=== PATIENT | male | born 1980 | race Caucasian/White ===

== ENCOUNTER 2018-12-30 18:00 | Emergency (ER) | payer OTHER ==
--- NOTE | 2018-12-30 18:04 | ED Physician Documentation ---
Eye Problem - HISTORIAN Historian: patient - HPI Stated Complaint: eye irritation after exposure Chief Complaint: Eye Trauma Onset: hours (1) Associated symptoms: burining, sensitivity to light, decreased vision (like a foggy room he said ) Location: both eyes Severity: mild Apparent Injury: yes Context: chemical exposure Where: home - ROS CONST: no problems MS/SKIN/LYMPH: denies: weakness CVS/RESP: none EYES/ENT: none GI/: denies: problems urinating NEURO: denies: headache - PAST HX Past History: none Allergies/Adverse Reactions: Allergies Allergy/AdvReac Type Severity Reaction Status Date / Time prednisone AdvReac Unknown unknown Verified 12/30/18 18:14 - SOCIAL HX Smoking History: non-smoker Alcohol Use: none Drug Use: none - FAMILY HX Family History: none - REVIEWED ASSESSMENTS Nursing Assessment Reviewed: Yes Vitals Reviewed: Yes Procedures - Eye Procedure Eye Irrigated w/ Saline (ccs): 1,000 (both eyes ) Progress: hanley lamp reveals no obvious injury. He has improvement on the visual mccurdy. DG Progress - Progress Progress: 1819: discussed with poison control and they have given further instructions DG Eye Problem Physical Exam - Physical Exam General Appearance: no acute distress, alert Eyelids: nml inspection Conjunctiva and Sclera: injected (R), injected (L) Corneas: fluorescein dye uptake (L), fluorescein dye uptake (R), examined with fluorescein (R), examined with fluorescein (L). No: foreign body (R), foreign body (L), abrasion (R), abrasion (L), corneal ulcer (R), corneal ulcer (L) EOM: intact Pupils: equal Head/ENT: nml inspection Skin: nml color, warm Neck/Back: nml inspection Respiratory: no resp distress, chest non-tender, breath sounds normal CVS: reg rate & rhythm, heart sounds normal, equal pulses Abdomen: non-tender Neuro/Psych: oriented x3 Discharge Clincal Impression: Bilateral eye trauma Qualifiers: Encounter type: initial encounter Qualified Code(s): S05.91XA - Unspecified injury of right eye and orbit, initial encounter Referrals: Primary Doctor,No [Primary Care Provider] - 2 Days Comments: 1. Eye protection for next day 2. Rinse eyes any further if needed 3. Follow up with eye provider if needed Tuesday 4. Return to ER for any increasing needs Condition: Stable Disposition: 01 HOME, SELF-CARE Decision to Admit: NO Date of Decison to Admit: 12/30/18 Decision Time: 19:05
[2018-12-30] MEDS ORDERED: PROPARACAINE HCL 0.5% OPTH 15 ML BOTTLE OU ONE (18:17)
[2018-12-30] MEDS ORDERED: 0.9 % SODIUM CHLORIDE 2,000 ML IV ONE (18:17)
[2018-12-30] MEDS ORDERED: PROPARACAINE HCL 0.5% OPTH 15 ML BOTTLE ONE (18:18)
[2018-12-30] MEDS ORDERED: 0.9 % SODIUM CHLORIDE 1,000 ML IV ONE ×2 (18:18→18:36)
[2018-12-30] MEDS ORDERED: FLUORESCEIN SODIUM 1 STRIP TEST ONE (18:42)
[2018-12-30] MEDS ORDERED: FLUORESCEIN SODIUM 1 STRIP TEST OU ONE (18:55)
[2018-12-30 19:13] VITALS: BP 112/74
== END 2018-12-30 19:07 | disposition home or self-care (01) ==
LOC: ED 18:00
DX: S05.91XA Unspecified injury of right eye and orbit, initial encounter (principal); Z77.098 Contact with and (suspected) exposure to other hazardous, chiefly nonmedicinal, chemicals
CPT/HCPCS: 96372; 99283; J7030